=== PATIENT | female | born 1990 | race Caucasian/White ===

== ENCOUNTER 2020-10-12 23:10 | Inpatient (IN) | payer OTHER, SELFPAY ==
[2020-10-13] MEDS ORDERED: MINERAL OIL 30 ML ORAL LIQD PO PRN (00:35)
[2020-10-13] MEDS ORDERED: LIDOCAINE (2%) 20 MG/1 ML VIAL 20 ML MDV INFILTRATI ONE (00:35)
[2020-10-13] MEDS ORDERED: fentaNYL 100 MCG/2 ML INJ IV PRN (00:35)
[2020-10-13] MEDS ORDERED: TERBUTALINE 1 MG/1 ML INJ SUB-Q PRN (00:35)
[2020-10-13] MEDS ORDERED: AMPICILLIN/NS 2 GM/100 ML 2 GM/100 ML BAG IV ONE (00:35)
[2020-10-13] MEDS ORDERED: ePHEDrine SULFATE 50 MG/1 ML INJ IV PRN (00:35)
--- NOTE | 2020-10-13 00:40 | History and Physical Report ---
History of Present Illness Date of examination: 10/13/20 Date of admission: 10/13/2020 Chief complaint: Labor History of present illness: 29 year old presents to L&D in labor. Patient reports regular contractions; she denies LOF or VB. Patient received care at [facility] and she brings records with her. LMP 01/17/2020. EDC 10/23/2020. significant for the following: GBS positive. labs are as follows: O+, antibody screen negative, rubella immune, hepatitis B surface antigen negative, HIV negative, RPR nonreactive, gonorrhea negative, chlamydia negative, GBS positive, quad screen normal, 1 hour glucoe test normal. 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 denies: smoking, alcohol abuse, prescription drug abuse, IV drug use - Obstetrical History Expected Date of Delivery: 10/23/20 Actual Gestation: 38 Week(s) 4 Day(s) : 4 Para: 3 Hx # Term Pregnancies: 0 Number of Pregnancies: 0 Spontaneous Abortions: 0 Induced : 0 Number of Living Children: 3 Medications and Allergies Allergies Allergy/AdvReac Type Severity Reaction Status Date / Time No Known Allergies Allergy Verified 10/13/18 19:07 Home Medications Medication Instructions Recorded Confirmed Last Taken Type Pnv No.95/Ferrous Fum/Folic AC 1 each PO DAILY 10/13/18 10/13/18 10/13/18 10:00 History [ Formula Tablet] Active Meds: Active Medications Ephedrine Sulfate (Ephedrine Sulfate) 10 mg IV Q2M PRN PRN Reason: Hypotension Fentanyl (Sublimaze) 100 mcg IV Q2H PRN PRN Reason: Pain,Severe (7-10) LABOR PAIN Lactated Ringer's (Lactated Ringers) 1,000 mls @ 125 mls/hr IV DIRECT JORDAN Oxytocin/Sodium Chloride (Pitocin/Ns 30 Unit/500ml) 30 units in 500 mls @ 40 mls/hr IV TITR JORDAN; Protocol Ampicillin Sodium (Ampicillin/Ns 2 Gm/100 Ml) 2 gm in 100 mls @ 100 mls/hr IV ONCE ONE; Protocol Stop: 10/13/20 01:34 Ampicillin Sodium (Ampicillin/Ns 1 Gm/50 Ml) 1 gm in 50 mls @ 100 mls/hr IV Q4HR JORDAN; Protocol Lidocaine (Xylocaine 2%) 20 ml INFILTRATI ONCE ONE Stop: 10/13/20 00:36 Mineral Oil (Mineral Oil) 30 ml PO QHS PRN PRN Reason: Constipation Terbutaline Sulfate (Brethine) 0.25 mg SUB-Q ONCE PRN PRN Reason: Hyperstimulation/Hypertonicity Review of Systems All systems: negative (contractions) - Vital Signs Vital signs: Vital Signs Pulse Pulse Ox 109 H 99 10/13/20 00:18 10/13/20 00:18 Temp Pulse Resp BP Pulse Ox 103 H 134/68 91 10/13/20 00:33 10/13/20 00:20 10/13/20 00:33 - Physical Exam Abdomen: Positive: normal appearance, soft. Negative: distention, tenderness, guarding, rigidity Genitourinary (Female): Positive: normal external genitalia, normal perenium. Negative: perineal/vulvar lesions Vagina: Positive: normal moisture Uterus: Positive: enlarged. Negative: tender Anus/Rectum: Positive: normal perianal skin Extremities: Positive: normal. Negative: tenderness, edema - Obstetrical FHR: category 2 Cervical Dilatation: 6.5 Cervical Effacement Percentage: 80 station: -1 Uterine Contraction Intensity: Moderate Results All other labs normal. Assessment and Plan A: at 38 weeks, 4 days gestation. Active labor. GBS positive. P: Admit. EFM. GBS prophylaxis.
[2020-10-13] MEDS ORDERED: LACTATED RINGERS 1,000 ML IV SCH (00:45)
[2020-10-13] MEDS ORDERED: OXYTOCIN DRIP 30 UNITS/500 ML BAG IV SCH (01:00)
[2020-10-13] MEDS ORDERED: HYDROcodone/ACETAMINOPHEN 5-325 MG TAB PO PRN (04:08)
[2020-10-13] MEDS ORDERED: LANOLIN/ZINC/DIMETHICONE (LANSINOH) 7 GM TP PRN (04:08)
[2020-10-13] MEDS ORDERED: WITCH HAZEL/ GLYCERIN PAD TP PRN (04:08)
[2020-10-13] MEDS ORDERED: MAGNESIUM HYDROXIDE (MOM) ORAL LIQD UDC PO PRN (04:08)
[2020-10-13 04:11] LABS: Hematocrit 35.2 % (30.3-42.9); Hemoglobin 11.7 gm/dl (10.1-14.3); Mean Corpuscular HGB Conc 33 % (30-34); Mean Corpuscular Volume 89 fl (79-97); Platelet Count 220 K/mm3 (140-440); Red Blood Count 3.94 M/mm3 (3.65-5.03); Red Cell Distribution Width 17.3 % (13.2-15.2)
--- NOTE | 2020-10-13 04:11 | Procedure Note ---
OB Delivery Note - Delivery Date of Delivery: 10/13/20 Surgeon: AMBER MUSA Estimated blood loss: 200cc - Vaginal Delivery presentation: vertex Delivery position: OA Intrapartum events: none Delivery induction: none Delivery monitor: external FHT, external uterine Route of delivery: Delivery placenta: spontaneous Delivery cord: 3 umbilical vessels Episiotomy: none Delivery laceration: none Anesthesia: none Delivery comments: Spontaneous vaginal delivery at 01:50 of liveborn female weighing 3.325 kg over intact perineum with apgars of 8/9. was atraumatic; no nuchal cord. Short cord; cord around ankle and arm. Shoulders delivered easily. Baby placed skin to skin with mom immediately after . Spontaneous cry and respirations. Baby bulb suctioned and dried with warm blankets. 3 vessel cord double clamped and cut. Cord blood obtained. Spontaneous delivery of intact placenta and membranes by espana mechanism at 01:55. Pitocin to IV fluids after delivery of placenta. EBL 200 cc. Fundus firm and midline. No lacerations noted. Vaginal sweep negative. Sponge count correct. Mother and baby stable.
[2020-10-13] MEDS ORDERED: AMPICILLIN/NS 1 GM/50 ML 1 GM/50 ML BAG IV SCH (04:38)
[2020-10-13] MEDS: IBUPROFEN 600 MG TAB PO SCH ×3 (06:01→18:27)
[2020-10-13 15:21] LABS: Hematocrit 33.4 % (30.3-42.9)
[2020-10-14] MEDS: IBUPROFEN 600 MG TAB PO SCH ×3 (05:25→17:50)
--- NOTE | 2020-10-14 12:05 | Progress Note ---
Assessment and Plan A: PP Day #1 Stable P: Follow Routine Orders D/C home today per patient request RTO in 6 Weeks Subjective - Subjective Date of service: 10/14/20 Patient reports: appetite normal, voiding normally, pain well controlled, f latus, bowel movement, ambulating normally : doing well, bottle feeding (and ) Objective - Vital Signs Latest vital signs: Vital Signs Temp Pulse Resp BP BP Pulse Ox 10/14/20 08:10 97.9 F 64 20 120/60 10/14/20 01:16 98.1 F 69 18 109/57 98 10/13/20 15:51 98.2 F 72 20 124/60 100 10/13/20 12:12 98.7 F 67 20 132/78 99 Intake and Output 10/13/20 10/14/20 10/14/20 22:59 06:59 14:59 Intake Total 240 480 120 Balance 240 480 120 Intake: Oral 240 120 Intake, Free Water 480 Other: Total, Intake Amount 240 120 # Voids Void 1 2 1 - Exam Breasts: Present: normal Cardiovascular: Present: Regular rate Lungs: Present: Clear to auscultation, Normal air movement Abdomen: Present: normal appearance, soft, normal bowel sounds Uterus: Present: normal, firm, fundal height below umbilicus Extremities: Present: normal
--- NOTE | 2020-10-14 12:07 | Discharge Summary ---
Providers - Providers Date of Admission: 10/13/20 00:35 Date of discharge: 10/14/20 Attending physician: ERLINDA PRADHAN Primary care physician: ERLINDA PRADHAN Hospitalization Reason for admission: active labor Delivery: Episiotomy: none Laceration: none Other procedures: none complications: none Discharge diagnosis: IUP at term delivered baby: female Condition at discharge: Good Disposition: DC-01 TO HOME OR SELFCARE Plan - Provider Discharge Summary Activity: routine, no sex for 6 weeks, no heavy lifting 4 weeks, no strenuous exercise Diet: routine Instructions: routine Additional instructions: [] Smoking cessation referral if applicable(refer to patient education folder for contact #) [] Refer to [facility]'s [facility] Booklet Call your doctor immediately for: * Fever > 100.5 * Heavy vaginal bleeding ( >1 pad per hour) * Severe persistent headache * Shortness of breath * Reddened, hot, painful area to leg or breast * Drainage or odor from incision. * Keep incision clean and dry at all times and follow doctor's instructions regarding bathing/showering - Follow up plan Follow up: ERLINDA PRADHAN MD [Primary Care Provider] - 6 Weeks
[2020-10-14 16:53] VITALS: BP 122/78
== END 2020-10-14 17:50 | disposition home or self-care (01) | DRG 807 ==
LOC: TRG 23:10 → APU 23:12 → LD 10-13 00:35 → TRG 10-13 00:35 → APU 10-13 00:44 → OB 10-13 03:58
PROVIDERS: ADMIT Obstetrics & Gynecology; ATTEND Obstetrics & Gynecology
PROC: 10E0XZZ Delivery of Products of Conception, External Approach (ICD-10-PCS; principal; 2020-10-13)
DX: O99.824 Streptococcus B carrier state complicating childbirth (principal); Z37.0 Single live birth; Z3A.38 38 weeks gestation of pregnancy; Z80.9 Family history of malignant neoplasm, unspecified
CPT/HCPCS: 36415; 85014; 85018; 85027; 86850; 86900; 86901; G0378; A6250; J0290; J2590; J7120